=== PATIENT | female | born 1965 | race African-American/Black ===

== ENCOUNTER 2020-06-12 08:53 | Emergency (ER) | payer MEDICARE, MEDICAID ==
[~2020-06-12] VITALS: Ht 162.6 cm; Wt 91.0 kg
[2020-06-12] MEDS ORDERED: ACETAMINOPHEN WITH CODEINE 300/30MG TABLET PO STA (09:40)
[2020-06-12 10:30] LABS: EOSINOPHILS % 2.1 % (0.0-5.0); HEMATOCRIT. 39.1 % (36.0-48.0); HEMOGLOBIN. 13.1 g/dL (12.0-16.0); LYMPHOCYTES % 43.1 % (20.0-50.0); MEAN CORPUSCULAR HEMOGLOBIN 29.3 pg (28.0-32.0); MEAN CORPUSCULAR VOLUME 87.4 fL (81.0-99.0); MONOCYTES % 11.5 % (2.0-8.0); NEUTROPHILS % 42.3 % (40.0-76.0); PLATELET 191 x1000/uL (130-400); RED BLOOD CELL COUNT 4.48 mill/uL (4.2-5.4)
[2020-06-12 10:56] LABS: CHLORIDE 108 mEq/L (98-107)
[2020-06-12 11:01] LABS: ETHANOL BLOOD < 10 mg/dL
[2020-06-12] MEDS ORDERED: OMEP40CA12 MT ×2 (12:07→12:08)
[2020-06-12 12:34] VITALS: BP 162/73
== END 2020-06-12 12:41 | disposition home or self-care (01) ==
LOC: ER 08:53
DX: K86.1 Other chronic pancreatitis (principal); Z91.040 Latex allergy status; Z98.890 Other specified postprocedural states
CPT/HCPCS: 36415; 80053; 80320; 85025; 93005; 99284; G0480

== ENCOUNTER → 2020-06-16 | Outpatient (CLI) | payer MEDICARE, MEDICAID ==
[~2020-06-16] MED LIST: OMEP40CA12 MT
== END | disposition home or self-care (01) ==
LOC: MRI 12:37
PROVIDERS: ATTEND Neurological Surgery
DX: M47.812 Spondylosis without myelopathy or radiculopathy, cervical region (principal); M48.02 Spinal stenosis, cervical region; M50.223 Other cervical disc displacement at C6-C7 level; M51.36 Other intervertebral disc degeneration, lumbar region
CPT/HCPCS: 72141; 72146; 72148